=== PATIENT | female | born 1980 | race Caucasian/White ===

== ENCOUNTER 2017-12-30 01:25 | Emergency (ER) | payer SELFPAY ==
[~2017-12-30] VITALS: Ht 149.9 cm; Wt 78.2 kg
[2017-12-30 01:29] VITALS: Ht 149.9 cm; Wt 78.2 kg
[2017-12-30 02:50] VITALS: BP 123/77
== END 2017-12-30 02:51 | disposition home or self-care (01) ==
LOC: D.ER 01:25
DX: G43.909 Migraine, unspecified, not intractable, without status migrainosus (principal); R11.0 Nausea; R42 Dizziness and giddiness; F17.200 Nicotine dependence, unspecified, uncomplicated

== ENCOUNTER 2018-03-30 16:01 | Emergency (ER) | payer SELFPAY ==
[~2018-03-30] VITALS: Ht 149.9 cm; Wt 82.3 kg
[2018-03-30 16:07] VITALS: Ht 149.9 cm; Wt 82.3 kg
[2018-03-30 16:38] LABS: APPEARANCE HAZY (CLEAR); BILIRUBIN NEGATIVE (NEGATIVE); COLOR YELLOW (YELLOW); GLUCOSE NEGATIVE (NEGATIVE); KETONE SMALL mg/dL (NEGATIVE); NITRITE NEGATIVE (NEGATIVE); PROTEIN 1+ mg/dL (NEGATIVE); UROBILINOGEN NORMAL (NORMAL)
[2018-03-30 16:40] LABS: BACTERIA MANY /hpf (NONE SEEN); EPITHELIAL CELLS 0-5 /hpf (0-5); RED CELLS - URINE 0-5 /hpf (0-5); WHITE CELLS - URINE 0-5 /hpf (0-5)
[2018-03-30 16:42] LABS: AMORPHOUS SEDIMENT >1+ /lpf (NONE SEEN)
[2018-03-30 16:46] LABS: UDS - AMPHET POSITIVE QUAL (NEGATIVE); UDS - BARB NEGATIVE QUAL (NEGATIVE); UDS - BENZO NEGATIVE QUAL (NEGATIVE); UDS - COCAINE NEGATIVE QUAL (NEGATIVE); UDS - OPIATE NEGATIVE QUAL (NEGATIVE); UDS - PCP NEGATIVE QUAL (NEGATIVE); UDS - THC POSITIVE QUAL (NEGATIVE)
[2018-03-30 16:56] LABS: BASOPHILS 0.1 % (0-2); EOSINOPHILS 0 % (0-7); HEMATOCRIT 39.2 % (36.0-48.0); HEMOGLOBIN 13.7 g/dL (12-16); IMMATURE GRANULOCYTES 0.2 % (0-5); MCH 32.2 pg (26.0-34.0); MCHC 34.9 g/dL (31.0-37.0); MCV 92.2 fL (80.0-100.0); MEAN PLATELET VOLUME 9.9 fL (7.4-10.4); MONOCYTES 4.6 % (2-11); NEUTROPHILS 84.1 % (40-80); PLATELET COUNT 306 10x3/uL (130-400); RBC 4.25 10x6/uL (4.00-5.40); RDW 13.5 % (11.5-14.5); WBC 14.4 10x3/uL (4.8-10.8)
[2018-03-30 17:10] LABS: ALBUMIN 4.2 g/dL (3.4-5.0); ALKALINE PHOSPHATASE 81 U/L (46-116); ALT (SGPT) 19 U/L (10-68); BILIRUBIN - TOTAL 0.58 mg/dL (0.2-1.3); CALC OSMOLALITY 276 mosm/kg (275-300); CALCIUM 9.2 mg/dL (8.5-10.1); CARBON DIOXIDE 21.9 mmol/L (21.0-32.0); CHLORIDE - SERUM 103 mmol/L (98-107); CREATININE - SERUM 0.9 mg/dL (0.6-1.3); GLUCOSE 104 mg/dL (74-106); POTASSIUM - SERUM 3.2 mmol/L (3.5-5.1); SODIUM 140 mmol/L (136-145); UREA NITROGEN 8 mg/dL (7-18); eGFR NON AFRICAN AMERICAN 75 mL/min (90-120)
[2018-03-30 17:11] LABS: HCG SERUM NEGATIVE (NEGATIVE)
[2018-03-30 19:21] VITALS: BP 126/75
[2018-04-03 11:23] LABS: CHLAMYDIA TRACHOMATIS, NAA Positive (Negative)
== END 2018-03-30 19:22 | disposition home or self-care (01) ==
LOC: D.ER 16:01
PROVIDERS: Family Medicine
DX: F15.10 Other stimulant abuse, uncomplicated (principal); A59.9 Trichomoniasis, unspecified